=== PATIENT | female | born 1950 | race African-American/Black ===

== ENCOUNTER 2018-10-07 05:30 | Inpatient (IN) ==
[2018-10-06 10:10] LABS: Basophils % 0.6 % (0.0-0.8); Eosinophils % 0.4 % (0.00-10.9); Hemoglobin 13.7 GM/DL (12.0-16.0); Immature Granulocytes % 0.3 %; Immature Granulocytes Absolute 0.02 #; Lymphocytes # 1.8 10*3/uL (1.4-4.0); Lymphocytes % 26.8 % (21.3-54.2); Mean Corpuscular HGB Conc 31.1 GM/DL (32-36); Mean Corpuscular Hemoglobin 29 PG (27-34); Mean Corpuscular Volume 93.8 FL (87-102); Monocytes # 0.4 10*3/uL (0.11-0.8); Monocytes % 6.1 % (1.7-12.7); Neutrophils # 4.4 10*3/uL (1.4-7.4); Neutrophils % 65.8 % (38.7-73.9); Platelet Count 297 T/CUMM (130-400); Red Blood Count 4.69 MC/CUMM (3.8-5.5); Red Cell Distribution Width 14.3 % (9.3-17.3); White Blood Count 6.7 T/CUMM (4-12)
[2018-10-06 10:18] LABS: INR 0.9; PT Patient Result 9.4 SECS
[2018-10-06 10:35] LABS: Calcium 9.5 MG/DL (8.5-10.1); Osmolality,Calculated 274.7 MOS/KG (273-304)
[2018-10-06 10:59] LABS: Apearance,Urine CLEAR (Clear); Bilirubin,Urine Negative (Negative); Blood, Urine Small mg/dL (Negative); Glucose,Urine (UA) Negative (Negative); Ketones,Urine Negative (Negative); Mucus,Urine Occasional /LPF (Occasional); Nitrite,Urine Negative (Negative); Protein,Urine Negative; RBC,Urine 2 /HPF (0-4); Squamous Epithelial Cell,Urine Occasional /HPF (0-10); Urine Color Yellow (Yellow); Urine Specific Gravity 1.016 (1.001-1.035); Urine Urobilinogen < 2.0 EU/DL (0.2-1.0)
[~2018-10-07 05:30] MED LIST: SODIUM CHLORIDE 0.9% 1,000 ML IV PRN
[2018-10-07] MEDS ORDERED: FAMOTIDINE 20 MG TABLET ONE (05:48)
[2018-10-07] MEDS ORDERED: DIAZEPAM 5 MG TABLET ONE (05:49)
[2018-10-07] MEDS ORDERED: FAMOTIDINE 20 MG TABLET PO ONE (06:00)
[2018-10-07] MEDS ORDERED: DIAZEPAM 5 MG TABLET PO ONE (06:00)
[2018-10-07] MEDS ORDERED: BUPIVACAINE LIPOSOMAL 20 ML/266 MG VIAL ONE (06:10)
[2018-10-07] MEDS ORDERED: CEFUROXIME 1,500 MG VIAL ONE (06:21)
[2018-10-07] MEDS: LACTATED RINGERS 1,000 ML IV SCH ×3 (06:30→09:30)
[2018-10-07] MEDS ORDERED: TISSUE ADHESIVE 1 EACH APPLICATOR TOP ONE (06:30)
[2018-10-07 11:21] LABS: Apearance,Urine CLEAR (Clear); Bilirubin,Urine Negative (Negative); Blood, Urine Negative (Negative); Glucose,Urine (UA) Negative (Negative); Ketones,Urine Negative (Negative); Nitrite,Urine Negative (Negative); Protein,Urine Negative; RBC,Urine 1 /HPF (0-4); Urine Color Yellow (Yellow); Urine Specific Gravity 1.011 (1.001-1.035); Urine Urobilinogen < 2.0 EU/DL (0.2-1.0); WBC,Urine <1 /HPF (0-6)
[2018-10-07] MEDS ORDERED: ONDANSETRON 4 MG/2 ML VIAL IV PRN ×2 (11:44→11:54)
[2018-10-07] MEDS ORDERED: HYDROmorphone 2 MG/1 ML VIAL ONE (11:46)
[2018-10-07] MEDS ORDERED: ONDANSETRON 4 MG/2 ML VIAL ONE (11:46)
[2018-10-07] MEDS ORDERED: PROPOFOL 200 MG/20 ML VIAL IV ONE (11:49)
[2018-10-07] MEDS ORDERED: SEVOFLURANE 1 UNIT/15 MINUTE INH ONE (11:49)
[2018-10-07] MEDS ORDERED: PHENYLEPHRINE 10 MG/1 ML VIAL IV ONE (11:50)
[2018-10-07] MEDS ORDERED: fentaNYL 100 MCG/2 ML VIAL ONE (11:50)
[2018-10-07] MEDS ORDERED: GLYCOPYRROLATE 0.4 MG/2 ML VIAL ONE (11:50)
[2018-10-07] MEDS ORDERED: DEXAMETHASONE 10 MG/1 ML VIAL ONE (11:50)
[2018-10-07] MEDS ORDERED: ROCURONIUM 100 MG/10 ML VIAL IV ONE (11:51)
[2018-10-07] MEDS ORDERED: ACETAMINOPHEN 1,000 MG/100 ML VIAL IV ONE (11:51)
[2018-10-07] MEDS ORDERED: SODIUM CHLORIDE 0.9% 250 ML IV ONE (11:51)
[2018-10-07] MEDS ORDERED: NEOSTIGMINE 10 MG/10 ML VIAL ONE (11:51)
[2018-10-07] MEDS ORDERED: LACTATED RINGERS 2,000 ML IV ONE (11:51)
[2018-10-07] MEDS ORDERED: PHENYLEPHRINE 1 MG/10 ML SYRINGE IV ONE (11:52)
[2018-10-07] MEDS: HYDROmorphone 2 MG/1 ML VIAL IV PRN ×4 (11:55→12:10)
[2018-10-07 12:27] LABS: Osmolality,Calculated 274.8 MOS/KG (273-304); Potassium 3.8 MMOL/L (3.5-5.1)
[2018-10-07 12:48] LABS: Basophils % 0.2 % (0.0-0.8); Eosinophils % 0.1 % (0.00-10.9); Hemoglobin 13.3 GM/DL (12.0-16.0); Immature Granulocytes % 0.4 %; Immature Granulocytes Absolute 0.04 #; Lymphocytes % 8.9 % (21.3-54.2); Mean Corpuscular HGB Conc 31.7 GM/DL (32-36); Mean Corpuscular Hemoglobin 30 PG (27-34); Mean Corpuscular Volume 93.5 FL (87-102); Mean Platelet Volume 10.2 FL (9.6-12.0); Monocytes # 0.4 10*3/uL (0.11-0.8); Monocytes % 4.1 % (1.7-12.7); Neutrophils # 9.3 10*3/uL (1.4-7.4); Neutrophils % 86.3 % (38.7-73.9); Platelet Count 262 T/CUMM (130-400); Red Blood Count 4.49 MC/CUMM (3.8-5.5); Red Cell Distribution Width 14.3 % (9.3-17.3); White Blood Count 10.8 T/CUMM (4-12)
[2018-10-07] MEDS: KETOROLAC 15 MG/1 ML VIAL IV SCH ×2 (13:13→18:13)
[2018-10-07] MEDS: POTASSIUM CHLORIDE INJ 10 MEQ in SODIUM CHLORIDE 0.45% 1,000 ML IV SCH (13:51)
[2018-10-07] MEDS: ACETAMINOPHEN INJ 1,000 MG in PREMIX 1 EACH IV SCH ×2 (13:51→19:43)
[2018-10-07] MEDS: GABAPENTIN 100 MG CAPSULE PO SCH ×2 (14:58→21:07)
[2018-10-07] MEDS: LISINOPRIL/HCTZ 10-12.5 MG TABLET PO SCH (17:45)
[2018-10-07] MEDS: ALBUTEROL/IPRATROPIUM 3 ML NEB RESP TX SCH ×2 (19:05→23:20)
[2018-10-07] MEDS: CEFUROXIME INJ 1,500 MG in SYRINGE 1 EACH IV SCH (20:02)
[2018-10-07] MEDS ORDERED: ASPIRIN CHEW 81 MG TABLET PO ONE ×2 (21:45→21:55)
[2018-10-07] MEDS ORDERED: NITROGLYCERIN SL 0.4 MG TABLET SL ONE (21:47)
[2018-10-07] MEDS: NITROGLYCERIN SL 0.4 MG TABLET SL PRN ×3 (21:47→22:05)
[2018-10-08] MEDS: KETOROLAC 15 MG/1 ML VIAL IV SCH ×4 (01:02→18:20)
[2018-10-08] MEDS: ALBUTEROL/IPRATROPIUM 3 ML NEB RESP TX SCH ×5 (03:45→20:30)
[2018-10-08] MEDS: POTASSIUM CHLORIDE INJ 10 MEQ in SODIUM CHLORIDE 0.45% 1,000 ML IV SCH (04:09)
[2018-10-08 04:22] LABS: Basophils % 0.2 % (0.0-0.8); Hematocrit 39.6 VOL% (35.7-47.0); Hemoglobin 12.5 GM/DL (12.0-16.0); Immature Granulocytes % 0.5 %; Immature Granulocytes Absolute 0.06 #; Lymphocytes # 1.3 10*3/uL (1.4-4.0); Lymphocytes % 10.2 % (21.3-54.2); Mean Corpuscular HGB Conc 31.6 GM/DL (32-36); Mean Corpuscular Hemoglobin 29 PG (27-34); Mean Platelet Volume 10.6 FL (9.6-12.0); Monocytes # 0.8 10*3/uL (0.11-0.8); Monocytes % 6.4 % (1.7-12.7); Neutrophils # 10.3 10*3/uL (1.4-7.4); Neutrophils % 82.7 % (38.7-73.9); Platelet Count 257 T/CUMM (130-400); Red Blood Count 4.26 MC/CUMM (3.8-5.5); Red Cell Distribution Width 14.2 % (9.3-17.3); White Blood Count 12.4 T/CUMM (4-12)
[2018-10-08 04:52] LABS: Calcium 8.6 MG/DL (8.5-10.1); Potassium 3.7 MMOL/L (3.5-5.1)
[2018-10-08 04:56] LABS: Troponin I < 0.015 NG/ML (0.00-0.045)
[2018-10-08] MEDS ORDERED: traMADol 50 MG TABLET PO PRN (06:00)
[2018-10-08] MEDS: ACETAMINOPHEN 500 MG TABLET PO SCH ×3 (06:07→18:20)
[2018-10-08] MEDS: ENOXAPARIN 40 MG/0.4 ML SYRINGE SUBCUT SCH (06:07)
[2018-10-08] MEDS: LISINOPRIL/HCTZ 10-12.5 MG TABLET PO SCH (09:26)
[2018-10-08] MEDS: PANTOPRAZOLE 40 MG VIAL IV SCH (09:27)
[2018-10-08] MEDS: GABAPENTIN 100 MG CAPSULE PO SCH ×3 (09:27→20:55)
[2018-10-08] MEDS: CELECOXIB 200 MG CAPSULE PO SCH ×2 (09:27→20:55)
[2018-10-08] MEDS: CEFUROXIME INJ 1,500 MG in SYRINGE 1 EACH IV SCH (09:50)
[2018-10-08] MEDS ORDERED: CEFUROXIME INJ 1,500 MG in SYRINGE 1 EACH IV SCH (10:00)
[2018-10-08] MEDS ORDERED: NON-FORMULARY MEDICATION (Umeclidinium Brm/Vilanterol Tr [Anoro Ellipta] 1 PUFF) INH PRN (10:19)
[2018-10-08] MEDS ORDERED: LISINOPRIL/HCTZ 10-12.5 MG TABLET PO SCH (10:19)
[2018-10-08 10:20] LABS: Troponin I < 0.015 NG/ML (0.00-0.045)
[2018-10-08] MEDS: MULTIVITAMIN (CENTRUM) TABLET PO SCH (11:46)
[2018-10-08] MEDS: SIMVASTATIN 10 MG TABLET PO SCH (11:46)
[2018-10-08] MEDS: CHOLECALCIFEROL 1,000 UNIT TABLET PO SCH (11:47)
[2018-10-08 16:57] LABS: Troponin I < 0.015 NG/ML (0.00-0.045)
[2018-10-09] MEDS: ALBUTEROL/IPRATROPIUM 3 ML NEB RESP TX SCH ×6 (00:16→20:20)
[2018-10-09] MEDS: ACETAMINOPHEN 500 MG TABLET PO SCH ×5 (02:10→22:45)
[2018-10-09] MEDS: KETOROLAC 15 MG/1 ML VIAL IV SCH ×2 (02:11→09:07)
[2018-10-09 05:50] LABS: Calcium 8.5 MG/DL (8.5-10.1); Osmolality,Calculated 278.7 MOS/KG (273-304); Potassium 4.1 MMOL/L (3.5-5.1)
[2018-10-09 06:06] LABS: Basophils % 0.2 % (0.0-0.8); Eosinophils # 0.1 10*3/uL (0.0-0.87); Eosinophils % 0.9 % (0.00-10.9); Hematocrit 40.2 VOL% (35.7-47.0); Hemoglobin 12.5 GM/DL (12.0-16.0); Immature Granulocytes % 0.6 %; Immature Granulocytes Absolute 0.06 #; Lymphocytes # 1.5 10*3/uL (1.4-4.0); Lymphocytes % 14.2 % (21.3-54.2); Mean Corpuscular HGB Conc 31.1 GM/DL (32-36); Mean Corpuscular Hemoglobin 29 PG (27-34); Mean Corpuscular Volume 93.7 FL (87-102); Mean Platelet Volume 10.3 FL (9.6-12.0); Monocytes # 0.7 10*3/uL (0.11-0.8); Monocytes % 7.2 % (1.7-12.7); Neutrophils # 7.9 10*3/uL (1.4-7.4); Neutrophils % 76.9 % (38.7-73.9); Platelet Count 248 T/CUMM (130-400); Red Blood Count 4.29 MC/CUMM (3.8-5.5); Red Cell Distribution Width 14.6 % (9.3-17.3); White Blood Count 10.2 T/CUMM (4-12)
[2018-10-09] MEDS: ENOXAPARIN 40 MG/0.4 ML SYRINGE SUBCUT SCH (07:11)
[2018-10-09] MEDS: GABAPENTIN 100 MG CAPSULE PO SCH ×3 (09:09→22:06)
[2018-10-09] MEDS: LISINOPRIL/HCTZ 10-12.5 MG TABLET PO SCH (09:09)
[2018-10-09] MEDS: CHOLECALCIFEROL 1,000 UNIT TABLET PO SCH (09:09)
[2018-10-09] MEDS: PANTOPRAZOLE 40 MG VIAL IV SCH (09:09)
[2018-10-09] MEDS: SIMVASTATIN 10 MG TABLET PO SCH (09:10)
[2018-10-09] MEDS: CELECOXIB 200 MG CAPSULE PO SCH ×2 (09:10→22:06)
[2018-10-09] MEDS: MULTIVITAMIN (CENTRUM) TABLET PO SCH (09:10)
[2018-10-09] MEDS ORDERED: POLYETHYLENE GLYCOL POWDER 17 GM PACK PO PRN (16:20)
[2018-10-10] MEDS: ALBUTEROL/IPRATROPIUM 3 ML NEB RESP TX SCH ×4 (03:44→10:45)
[2018-10-10] MEDS: ENOXAPARIN 40 MG/0.4 ML SYRINGE SUBCUT SCH (05:00)
[2018-10-10] MEDS: ACETAMINOPHEN 500 MG TABLET PO SCH (05:00)
[2018-10-10 05:02] LABS: Basophils % 0.4 % (0.0-0.8); Eosinophils # 0.2 10*3/uL (0.0-0.87); Eosinophils % 2.2 % (0.00-10.9); Hematocrit 36.2 VOL% (35.7-47.0); Hemoglobin 11.3 GM/DL (12.0-16.0); Immature Granulocytes % 0.6 %; Immature Granulocytes Absolute 0.05 #; Lymphocytes # 1.6 10*3/uL (1.4-4.0); Lymphocytes % 18.9 % (21.3-54.2); Mean Corpuscular HGB Conc 31.2 GM/DL (32-36); Mean Corpuscular Hemoglobin 29 PG (27-34); Mean Corpuscular Volume 94.3 FL (87-102); Mean Platelet Volume 10.8 FL (9.6-12.0); Monocytes # 0.7 10*3/uL (0.11-0.8); Monocytes % 8.7 % (1.7-12.7); Neutrophils # 5.8 10*3/uL (1.4-7.4); Neutrophils % 69.2 % (38.7-73.9); Platelet Count 241 T/CUMM (130-400); Red Blood Count 3.84 MC/CUMM (3.8-5.5); Red Cell Distribution Width 14.6 % (9.3-17.3); White Blood Count 8.3 T/CUMM (4-12)
[2018-10-10 05:13] LABS: Calcium 8.8 MG/DL (8.5-10.1); Osmolality,Calculated 281.3 MOS/KG (273-304); Potassium 4.2 MMOL/L (3.5-5.1)
[2018-10-10 07:54] VITALS: BP 143/66
[2018-10-10] MEDS: LISINOPRIL/HCTZ 10-12.5 MG TABLET PO SCH (08:48)
[2018-10-10] MEDS: CHOLECALCIFEROL 1,000 UNIT TABLET PO SCH (08:48)
[2018-10-10] MEDS: SIMVASTATIN 10 MG TABLET PO SCH (08:49)
[2018-10-10] MEDS: MULTIVITAMIN (CENTRUM) TABLET PO SCH (08:49)
[2018-10-10] MEDS: CELECOXIB 200 MG CAPSULE PO SCH (08:49)
[2018-10-10] MEDS: GABAPENTIN 100 MG CAPSULE PO SCH (08:49)
[2018-10-10] MEDS: PANTOPRAZOLE 40 MG VIAL IV SCH (08:50)
== END 2018-10-10 11:27 | disposition home health service (06) | DRG 165 ==
LOC: N.SDSINP 05:30 → N.ICU 12:30 → N.TELES 10-08 17:11
PROVIDERS: ADMIT Thoracic Surgery (Cardiothoracic Vascular Surgery); ATTEND Thoracic Surgery (Cardiothoracic Vascular Surgery)

== ENCOUNTER 2022-01-29 06:27 | Observation (INO) ==
[2022-01-29] MEDS ORDERED: SODIUM CHLORIDE 0.45% 1,000 ML IV SCH (07:00)
[2022-01-29 07:47] LABS: Basophils % 0.2 % (0.0-0.8); Eosinophils # 0.1 10*3/uL (0.0-0.87); Eosinophils % 1.6 % (0.00-10.9); Hematocrit 38.2 VOL% (35.7-47.0); Hemoglobin 12.3 GM/DL (12.0-16.0); Immature Granulocytes % 0.4 %; Immature Granulocytes Absolute 0.02 #; Lymphocytes # 0.9 10*3/uL (1.4-4.0); Lymphocytes % 18.6 % (21.3-54.2); Mean Corpuscular HGB Conc 32.2 GM/DL (32-36); Mean Corpuscular Volume 95.3 FL (87-102); Mean Platelet Volume 10.8 FL (9.6-12.0); Monocytes # 0.5 10*3/uL (0.11-0.8); Monocytes % 9.5 % (1.7-12.7); Neutrophils % 69.7 % (38.7-73.9); Platelet Count 316 T/CUMM (130-400); Red Blood Count 4.01 MC/CUMM (3.8-5.5); Red Cell Distribution Width 14.4 % (9.3-17.3); White Blood Count 5.1 T/CUMM (4-12)
[2022-01-29 07:59] LABS: INR 0.9; PT Patient Result 10.3 SECS (10.5-12.0)
[2022-01-29] MEDS ORDERED: DIAZEPAM 5 MG TABLET PO ONE (08:00)
[2022-01-29] MEDS ORDERED: MORPHINE 10 MG/1 ML VIAL ONE (10:21)
[2022-01-29] MEDS ORDERED: MORPHINE 2 MG/1 ML SYRINGE IV ONE ×2 (10:23→10:50)
[2022-01-29] MEDS ORDERED: ALBUTEROL 2.5 MG/3 ML NEB RESP TX PRN (16:35)
[2022-01-29] MEDS ORDERED: GLUCAGON 1 MG VIAL IM PRN (16:35)
[2022-01-29] MEDS ORDERED: ONDANSETRON 4 MG/2 ML VIAL IV PRN (16:35)
[2022-01-29] MEDS ORDERED: hydrALAZINE 20 MG/1 ML VIAL IV PRN (16:35)
[2022-01-29] MEDS ORDERED: DEXTROSE 10% 250 ML BAG IV PRN (16:44)
[2022-01-30 04:42] LABS: Basophils % 0.4 % (0.0-0.8); Eosinophils # 0.1 10*3/uL (0.0-0.87); Eosinophils % 1.7 % (0.00-10.9); Hematocrit 40.1 VOL% (35.7-47.0); Hemoglobin 12.3 GM/DL (12.0-16.0); Immature Granulocytes % 0.2 %; Immature Granulocytes Absolute 0.01 #; Lymphocytes # 0.8 10*3/uL (1.4-4.0); Lymphocytes % 15.9 % (21.3-54.2); Mean Corpuscular HGB Conc 30.7 GM/DL (32-36); Mean Corpuscular Volume 98.8 FL (87-102); Mean Platelet Volume 10.4 FL (9.6-12.0); Monocytes # 0.5 10*3/uL (0.11-0.8); Neutrophils % 71.8 % (38.7-73.9); Platelet Count 244 T/CUMM (130-400); Red Blood Count 4.06 MC/CUMM (3.8-5.5); Red Cell Distribution Width 14.4 % (9.3-17.3); White Blood Count 5.3 T/CUMM (4-12)
[2022-01-30 05:14] LABS: Calcium 9.4 MG/DL (8.5-10.1); Osmolality,Calculated 278.5 MOS/KG (273-304); Risk Ratio 3.5; Thyroid Stimulating Hormone 0.729 uIU/ml (0.358-3.74); VLDL Cholesterol 14.4 MG/DL
[2022-01-30] MEDS ORDERED: PANTOPRAZOLE 40 MG TABLET PO SCH (09:00)
[2022-01-30 12:36] VITALS: BP 114/72
[2022-01-30] MEDS ORDERED: DEXTROSE 10% 250 ML BAG IV PRN (13:47)
[2022-01-30] MEDS ORDERED: INSULIN LISPRO 100 UNIT/ML SUBCUT SCH (16:30)
== END 2022-01-30 16:50 | disposition home or self-care (01) ==
LOC: N.TELES 06:27 → N.RAD 06:27 → N.SDSINP 06:28 → N.TELES 16:17
PROVIDERS: ADMIT Radiology Diagnostic Radiology; ATTEND Radiology Diagnostic Radiology
PROC: IRGDHTC (2022-01-29 07:05)